=== PATIENT | male | born 1990 | race Caucasian/White ===

== ENCOUNTER → 2018-12-12 16:00 | Outpatient (CLI) | payer OTHER, SELFPAY ==
--- NOTE | 2018-12-12 16:05 | DI.MRI.S_ITS ---
PROCEDURE: MR WRIST RT WO CON INDICATIONS: PAIN IN RIGHT WRIST TECHNIQUE: Noncontrast coronal proton density fast spin echo and T2 fast spin echo with fat saturation; coronal 3-D gradient echo, axial T1 spin echo and T2 fast spin echo with fat saturation, sagittal T1 spin echo through the wrist. COMPARISON: None. FINDINGS: Image quality: Diagnostic. Bones: No acute fracture, dislocation, or suspicious osseous lesion is identified involving the osseous structures of the right wrist. Bony alignment appears to be within normal limits. No evidence of avascular necrosis is appreciated. No significant joint effusions are appreciated. Carpal ligaments: The scapholunate and lunotriquetral ligaments appear intact. In the absence of intra-articular contrast, the extrinsic carpal ligaments are not well identified. On sagittal images, the pisohamate ligament appears intact. Triangular fibrocartilage complex: The triangular fibrocartilage appears intact. The adjacent meniscal homolog appears normal in the absence of intra-articular contrast. The extensor carpi ulnaris tendon is intact. Tendons and soft tissues: There is a large amount of fluid identified within the 4th extensor tendon sheaths, which is surrounding the tendons of the venous compartment. There is increased signal identified involving the extensor carpi ulnaris tendon along the tip of the ulnar styloid process with minimal fluid contained within its corresponding tendon sheath. There may also be mild fluid identified within the 1st and 2nd extensor tendon sheath. The flexor tendons are intact and otherwise within normal limits. The median nerve is unremarkable. The ulnar nerve symptoms canal is grossly unremarkable. IMPRESSION: 1. Prominent tenosynovitis involving the contents of the 4th extensor compartment. 2. Mild tenosynovitis of the 1st and 2nd extensor compartments. 3. Moderate tendinopathy involving the extensor carpi ulnaris tendon with corresponding minimal tenosynovitis. Dictated by: Cristiano Orona M.D. on 12/13/2018 at 11:13 Approved by: Cristiano Orona M.D. on 12/13/2018 at 11:19
== END ==
PROVIDERS: Visit Provider Orthopaedic Surgery
DX: M25.531 Pain in right wrist (principal); M65.88 Other synovitis and tenosynovitis, other site
CPT/HCPCS: 73221